=== PATIENT | male | born 1955 | race Caucasian/White ===

== ENCOUNTER 2023-11-21 15:26 | Emergency (ER) | payer OTHER ==
[2023-11-21 15:38] VITALS: RESP 18; BMI 30.2
[2023-11-21] MEDS: ACETAMINOPHEN 325 MG TABLET (FP) PO ONE (16:30)
[2023-11-21] MEDS ORDERED: ACETAMINOPHEN 325 MG TABLET (FP) ONE (17:39)
[2023-11-21 20:15] VITALS: BP 164/96; PULSE 72; TEMP 98
== END 2023-11-21 20:16 | disposition short-term general hospital (02) ==
LOC: JER 15:26
DX: S05.92XA Unspecified injury of left eye and orbit, initial encounter (principal); M25.512 Pain in left shoulder; R51.9 Headache, unspecified; V43.52XA Car driver injured in collision with other type car in traffic accident, initial encounter; Y04.8XXA Assault by other bodily force, initial encounter
CPT/HCPCS: 70450-TC; 70486-TC; 72125-TC; 73030-TC-LT-FY; 99285-25